=== PATIENT | male | born 2000 | race Caucasian/White ===

== ENCOUNTER 2025-05-26 13:11 | Emergency (ER) | payer MEDICAID ==
[~2025-05-26] VITALS: Ht 180.3 cm; Wt 68.0 kg
[2025-05-26 13:29] VITALS: PULSE 89; RESP 18; O2SAT 98
[2025-05-26 13:46] VITALS: BP 104/69; TEMP 36.6; O2SAT 99
[2025-05-26] MEDS ORDERED: SUMA11AE2 BOTHNSTRLS (16:24)
[2025-05-26] MEDS: DIPHENHYDRAMINE 12.5MG/5ML UDC PO ONE (16:31)
[2025-05-26] MEDS: PROCHLORPERAZINE MALEATE 10MG TABLET PO ONE (16:31)
[2025-05-26] MEDS: DEXAMETHASONE 4MG TABLET PO ONE (16:32)
[2025-05-26] MEDS: SUMATRIPTAN SUCCINATE 25MG TABLET PO ONE (16:32)
[2025-05-26] MEDS: IBUPROFEN 600MG TABLET PO ONE (16:33)
== END 2025-05-26 16:40 | disposition home or self-care (01) ==
LOC: ER 13:11
DX: U07.1 COVID-19 (principal); G43.909 Migraine, unspecified, not intractable, without status migrainosus; Z79.899 Other long term (current) drug therapy
CPT/HCPCS: 99284; 87426; J8540; Q0164; Q0163